=== PATIENT | male | born 1945 | race Caucasian/White ===

== ENCOUNTER → 2020-06-03 | Outpatient (CLI) | payer OTHER ==
[~2020-06-03] MED LIST: ASPI-1012 PO; ATOR-2 PO; FISH1CAP50 PO; HYDR-2132 PO; MELO-108 PO; MULT-1124 PO; TAMS0.4C32 PO
== END | disposition home or self-care (01) ==
LOC: RAH 14:36
PROVIDERS: ATTEND Urology
DX: N20.0 Calculus of kidney (principal)
CPT/HCPCS: 74018; 76100

== ENCOUNTER → 2020-07-06 | Outpatient (CLI) | payer OTHER | END | disposition home or self-care (01) | LOC: RAH 10:00 | PROVIDERS: ATTEND Urology | DX: N20.0 Calculus of kidney (principal) | CPT/HCPCS: 74018; 76100 ==

== ENCOUNTER → 2021-05-18 | Outpatient (CLI) | payer OTHER | END | disposition home or self-care (01) | LOC: RAH 15:07 | PROVIDERS: ATTEND Urology | DX: N20.0 Calculus of kidney (principal); K59.00 Constipation, unspecified; M47.816 Spondylosis without myelopathy or radiculopathy, lumbar region | CPT/HCPCS: 74018; 76100 ==

== ENCOUNTER → 2021-08-02 | Outpatient (CLI) | payer OTHER | END | disposition home or self-care (01) | LOC: RAH 12:25 | PROVIDERS: ATTEND Urology | DX: I86.1 Scrotal varices (principal); N43.3 Hydrocele, unspecified; N45.1 Epididymitis | CPT/HCPCS: 76870 ==